=== PATIENT | male | born 1990 | race Asian ===

== ENCOUNTER 2017-02-16 23:09 | Emergency (ER) | payer SELFPAY ==
--- NOTE | 2017-02-16 23:32 | NUR ---
CALLED PT IN [place], NO RESPONSE
--- NOTE | 2017-02-17 00:27 | NUR ---
CALLED PT IN [place], NO RESPONSE
== END 2017-02-17 00:28 | disposition left against medical advice (07) ==
LOC: ER 23:10
DX: Z53.21 Procedure and treatment not carried out due to patient leaving prior to being seen by health care provider (principal)